=== PATIENT | female | born 1980 | race Caucasian/White ===

== ENCOUNTER 2016-11-16 06:46 | Day surgery (SDC) | payer OTHER ==
[~2016-11-16] VITALS: Ht 157.5 cm; Wt 98.4 kg
[2016-11-16] MEDS ORDERED: ePHEDrine 50 MG/ML VIAL ONE (09:42)
[2016-11-16] MEDS ORDERED: DESFLURANE 240 ML BTL INH ONE (09:42)
[2016-11-16] MEDS ORDERED: KETOROLAC 30 MG/ML VIAL ONE (09:42)
[2016-11-16] MEDS ORDERED: DEXAMETHASONE 4 MG/ML VIAL ONE (09:42)
[2016-11-16] MEDS ORDERED: ROCURONIUM 50 MG/5 ML VIAL IV ONE (09:42)
[2016-11-16] MEDS ORDERED: LIDOCAINE 2% 100 MG/5 ML SYR IVP ONE (09:42)
[2016-11-16] MEDS ORDERED: ONDANSETRON 4 MG/2 ML VIAL ONE (09:42)
[2016-11-16] MEDS ORDERED: PROPOFOL 200 MG/20 ML VIAL IV ONE (09:42)
[2016-11-16] MEDS ORDERED: SUCCINYLCHOLINE CHLORIDE 200 MG/10 ML VIAL IVP ONE (09:42)
[2016-11-16] MEDS ORDERED: MIDAZOLAM 2 MG/2 ML VIAL ONE (09:53)
[2016-11-16] MEDS ORDERED: fentaNYL 0.05 MG/ML VIAL ONE (09:54)
[2016-11-16] MEDS ORDERED: BUPIVACAINE-MPF 0.25% 30 ML VIAL INJ ONE (09:59)
[2016-11-16] MEDS ORDERED: HYDROmorphone 1 MG/ML AMP IVP PRN ×2 (10:30→11:30)
[2016-11-16] MEDS ORDERED: ONDANSETRON 4 MG/2 ML VIAL IVP PRN (10:30)
[2016-11-16] MEDS ORDERED: MORPHINE SULFATE 4 MG/ML SYR IV PRN (11:30)
[2016-11-16] MEDS ORDERED: HYDROcodone/APAP 5/325 MG 1 TAB TAB PO PRN (11:30)
[2016-11-16] MEDS ORDERED: ACETAMINOPHEN 325 MG TAB PO PRN (11:30)
[2016-11-16] MEDS ORDERED: ONDANSETRON 4 MG/2 ML VIAL IV PRN (11:30)
[2016-11-16] MEDS ORDERED: NACL 0.9% 1,000 ML IV SCH (11:30)
[2016-11-16] MEDS: HYDROmorphone PFS 2 MG/ML SYR ONE ×4 (11:35→12:05)
== END 2016-11-16 13:50 | disposition home or self-care (01) ==
LOC: EDSEX 06:46 → MDS 06:46 → MMU 06:47 → MDS 13:50
PROVIDERS: ATTEND Surgery
DX: K80.20 Calculus of gallbladder without cholecystitis without obstruction (principal); E11.22 Type 2 diabetes mellitus with diabetic chronic kidney disease; I12.9 Hypertensive chronic kidney disease with stage 1 through stage 4 chronic kidney disease, or unspecified chronic kidney disease; N18.9 Chronic kidney disease, unspecified; J45.909 Unspecified asthma, uncomplicated; K21.9 Gastro-esophageal reflux disease without esophagitis; E66.3 Overweight; D64.9 Anemia, unspecified; F03.90 Unspecified dementia, unspecified severity, without behavioral disturbance, psychotic disturbance, mood disturbance, and anxiety; G40.909 Epilepsy, unspecified, not intractable, without status epilepticus; Z98.51 Tubal ligation status; Z82.49 Family history of ischemic heart disease and other diseases of the circulatory system; F17.210 Nicotine dependence, cigarettes, uncomplicated
CPT/HCPCS: 36415; 71010; 86886; 86900; 86901; J0330; J0690; J1100; J1170; J1885; J2001; J2250; J2405; J2704; J3010; J3490; J7060; J7120; 88304

== ENCOUNTER 2021-10-31 16:32 | Emergency (ER) | payer OTHER ==
[~2021-10-31] VITALS: Ht 157.5 cm; Wt 110.2 kg
[2021-10-31 17:14] VITALS: BP 150/99
--- NOTE | 2021-10-31 18:42 | NUR ---
COREY SAGE TO SEE PT
--- NOTE | 2021-10-31 19:25 | NUR ---
PT TAKEN TO RAD VIA WC
[2021-10-31] MEDS ORDERED: IBUP-2213 PO (20:04)
[2021-10-31 20:30] VITALS: BP 154/89
== END 2021-10-31 22:30 | disposition home or self-care (01) ==
LOC: MED 16:32
DX: S80.01XA Contusion of right knee, initial encounter (principal); V49.88XA Car occupant (driver) (passenger) injured in other specified transport accidents, initial encounter; Y93.89 Activity, other specified; Y92.89 Other specified places as the place of occurrence of the external cause; Y99.8 Other external cause status
CPT/HCPCS: 70450; 73562; 99284